=== PATIENT | female | born 1995 | race African-American/Black ===

== ENCOUNTER 2020-01-20 18:35 | Emergency (ER) | payer OTHER, SELFPAY ==
--- NOTE | 2020-01-20 19:02 | PC.NURSE ---
Pt decided to try another facility. Ambulatory out of dept.
== END 2020-01-20 19:02 | disposition left against medical advice (07) ==
LOC: ANHED 19:09
DX: Z53.21 Procedure and treatment not carried out due to patient leaving prior to being seen by health care provider (principal)
CPT/HCPCS: 82962; 99199

== ENCOUNTER 2020-03-02 10:07 | Emergency (ER) | payer OTHER, SELFPAY ==
--- NOTE | ~2020-03-02 | US_ITS ---
EXAMINATION: US pelvic complete DATE: 03/02/2020 13:25 INDICATION: Right lower quadrant pain TECHNIQUE: Multiple transabdominal and endovaginal sonographic images of the pelvis were obtained. COMPARISON: None. FINDINGS: The uterus measures 7.8 x 3.9 x 4.6 cm. The endometrial complex measures 13 mm. The right o vary measures 3.8 x 2.3 x 3.0 cm and contains a cyst. The left ovary measures 3.5 x 1.9 x 2.4 cm. The re is normal vascular flow in the ovaries. There is no free fluid in the pelvis. IMPRESSION: 1. No sonographic correlate for the patient's symptoms. Reviewed, dictated and finalized at [facility].
--- NOTE | ~2020-03-02 | CT_ITS ---
EXAMINATION: CT abdomen pelvis w con INDICATION: Right lower quadrant pain TECHNIQUE: Computed tomographic images of the abdomen and pelvis were obtained after the administrati on of 100 cc of Omnipaque 350 intravenous contrast. The dose-length product (DLP) was 1131.25 mGy-cm. Automated exposure control and iterative reconstruction technique were employed. COMPARISON: 06/12/2017 FINDINGS: The lung bases are clear. The heart size is normal. The liver, spleen, pancreas, gallbladde r, and adrenal glands are normal. The kidneys are unremarkable. No pathologically enlarged abdominal or pelvic lymph nodes are identified. There is no free intraperitoneal gas or evidence of bowel obstr uction. The appendix is normal. A small amount of free fluid in the pelvis is likely physiologic. The re is a 3.3 cm cyst of the right ovary. The right ovary is positioned somewhat medial and posterior t o the uterine body. IMPRESSION: 1. Somewhat medial positioning of the right ovary relative to the uterine body. If ovarian torsion is a consideration, pelvic ultrasound is recommended. Reviewed, dictated and finalized at location [facility].
[2020-03-02 10:11] VITALS: BP 132/89; PULSE 75; RESP 18; TEMP 36.6; O2SAT 100
[2020-03-02 10:39] LABS: Add Urine Microscopic? NO; Appearance Urine Clear (Clear); Bilirubin Urine Negative (Negative); Blood Urine Negative (Negative); Color Urine Colorless (Yellow); Glucose Urine UA Negative (Negative); Ketones Urine Negative (Negative); Leukocyte Esterase Ur Negative LEU/UL (Negative); Nitrate Urine Negative (Negative); Protein Urine Negative (Negative); Specific Grav Ur 1.006 (1.001-1.035); Urobilinogen Urine Negative mg/dL (<2.0)
[2020-03-02] MEDS: KETOROLAC 30 MG/ML VIAL (*BKC) IV PUSH (11:17)
[2020-03-02] MEDS: SODIUM CHLORIDE 0.9% IV 1,000 ML 999 ML IV CONT (11:17)
[2020-03-02] MEDS: ONDANSETRON INJ 4 MG/2 ML VIAL IV PUSH (11:17)
[2020-03-02] MEDS: FAMOTIDINE 20 MG/2 ML VIAL IV PUSH (11:18)
[2020-03-02 11:21] LABS: Basophils Absolute Auto 0.1 K/mm3 (0.0-0.1); Basophils Percent Auto 0.7 % (0.2-1.2); Eosinophils Absolute Auto 0.2 K/mm3 (0-0.3); Eosinophils Percent Auto 3.3 % (0-4.4); Hematocrit 41.8 % (37.0-47.0); Hemoglobin 13.4 g/dL (12.0-15.0); Immature Granulocyte Absolute 0.03 K/mm3 (0.00-0.031); Immature Granulocyte Percent A 0.4 % (0-0.5); Lymphocytes Absolute Auto 1.65 K/mm3 (0.9-3.2); Lymphocytes Percent Auto 22.8 % (18.3-44.2); Mean Corpuscular HGB Conc 32.1 g/dl (32-36); Mean Corpuscular Hemoglobin 28.6 pg (26-34); Mean Corpuscular Volume 89.3 fl (80-100); Monocytes Absolute Auto 0.6 K/mm3 (0.1-0.6); Monocytes Percent Auto 8.2 % (2.6-8.5); Neutrophils Absolute Auto 4.7 K/mm3 (1.3-6.7); Neutrophils Percent Auto 64.6 % (45.5-73.1); Platelet Count Result 269 k/mm3 (150-375); Red Blood Count 4.68 M/mm3 (4.2-5.4); Red Cell Distribution Width 13.5 % (11.5-14.5); White Blood Count 7.2 K/mm3 (4.5-10.0)
[2020-03-02 11:34] LABS: Alanine Aminotransferase 13 U/L (4-35); Albumin Level 4.5 g/dL (3.5-5.1); Alkaline Phosphatase 71 U/L (38-126); Anion Gap 7 mmol/L (8-16); Aspartate Amino Transferase 22 U/L (14-36); Bilirubin,Total 0.2 mg/dL (0.2-1.3); Blood Urea Nitrogen 10 mg/dL (7-17); Calcium 9.8 mg/dL (8.4-10.2); Carbon Dioxide 28 mmol/L (22-30); Chloride 100 mmol/L (98-107); Estimated CRCL calculation 99 ml/min; Estimated Glomerular Filt Rate > 60; Glucose 89 mg/dL (65-105); Sodium 135 mmol/L (137-145)
--- NOTE | 2020-03-02 12:23 | ED.GENADULT ---
HPI - General Adult General Chief complaint: MANUFACTURERS REPRESENTATIVE <STUART Patricia Last Filed: 03/02/20 14:19> Stated complaint: pelvic pain <STUART Patricia Last Filed: 03/02/20 14:19> Time Seen by Provider: 03/02/20 10:20 <STUART Patricia Last Filed: 03/02/20 14:19> Source: patient and family <STUART Patricia Last Filed: 03/02/20 14:19> Mode of arrival: ambulatory <STUART Patricia Last Filed: 03/02/20 14:19> Limitations: no limitations <STUART Patricia Last Filed: 03/02/20 14:19> History of Present Illness HPI narrative: Patient is a 24-year-old female who presents to emergency department with family for evaluation of sharp right lower quadrant pain that began this morning and intensified patient has been having lower pelvic pain for the last month or more has seen her specialist for this had pelvic exam which was unremarkable for STDs patient. Patient was started on hormone replacement to attempt to get her to have a period which she has not had for a month. Patient noted sharp stabbing pain this morning that intensified with associated nausea. Denies urinary symptoms vaginal bleeding discharge or change in bowel habits <STUART Patricia Last Filed: 03/02/20 14:19> Related Data Home medications: Home Medications Medication Instructions Recorded Confirmed duloxetine mg PO DAILY 03/02/20 hydroxychloroquine BID 03/02/20 medroxyprogesterone See Rx Instructions .ROUTE .COMPLEX 03/02/20 03/02/20 <Davon Cage PA-C - Last Filed: 03/02/20 14:19> Allergies/adverse reactions: Allergies Allergy/AdvReac Type Severity Reaction Status Date / Time oxycodone AdvReac Hallucinati Verified 03/02/20 10:49 ng <STUART Patricia Last Filed: 03/02/20 14:19> Review of Systems Review of Systems: All systems reviewed & are unremarkable except as noted in HPI and below <STUART Patricia Last Filed: 03/02/20 14:19> PMF Past Medical History Medical History: Medical History Obesity <Davon Cage PA-C - Last Filed: 03/02/20 14:19> Surgical History Surgical History: Surgical History H/O left knee surgery <Davon Cage PA-C - Last Filed: 03/02/20 14:19> Family History Family History: Family History Grandparent Hypertension Other Family history of lupus erythematosus <Davon Cage PA-C - Last Filed: 03/02/20 14:19> Social History Social History: Social History Smoking status: Never smoker Second hand tobacco smoke exposure: No Alcohol intake: never Gender identity (if verbalized by the patient): Female <Davon Cage PA-C - Last Filed: 03/02/20 14:19> Exam Narrative: Exam Narrative: GENERAL: Well-appearing, well-nourished, and in no acute distress. HEAD: Normocephalic, atraumatic. EYES: PERRLA and EOMI. ENT: Nares clear, no rhinorrhea or epistaxis. Mucous membranes moist. NECK: Supple. No adenopathy or masses. CHEST: Clear to auscultation. No respiratory distress. No wheezes rales or rhonchi HEART: Regular rate and rhythm. No murmur heard. Normal peripheral pulses. ABDOMEN: Soft, tenderness in the right adnexa no rebound or guarding, nondistended FEMALE GENITOURINARY: Patient with small amount of white discharge in the vaginal vault otherwise unremarkable exam EXTREMITIES: Normal range of motion. No edema. SKIN: Warm, dry, no rash. NEURO: No focal deficits. Alert and oriented x3. PSYCH: Normal mood and affect. <Davon Cage PA-C - Last Filed: 03/02/20 14:19> Course Course Emergency Course: Patient was given medications with improvement in the emergency department made aware of case findings treatme
[2020-03-02 12:43] VITALS: BP 138/74; PULSE 64; RESP 16; O2SAT 100
[2020-03-02 14:35] VITALS: BP 131/74; PULSE 74; RESP 16; O2SAT 99
== END 2020-03-02 14:37 | disposition home or self-care (01) ==
PROVIDERS: Emergency Medicine Emergency Medical Services; Emergency Provider Emergency Medicine
DX: R10.2 Pelvic and perineal pain (principal); N83.209 Unspecified ovarian cyst, unspecified side
CPT/HCPCS: 36415; 74177; 76856; 80053; 81003; 81025; 85025; 87070; 87077; 87491; 87591; 87808; 96361; 96374; 96375; 99284; J1885; J2405; J7030; Q9967

== ENCOUNTER 2020-12-07 17:26 | Emergency (ER) | payer OTHER, SELFPAY ==
--- NOTE | ~2020-12-07 | US_ITS ---
US pelvic complete w TV DATE: 12/07/2020 18:56 INDICATION: Right lower quadrant abdominal pain TECHNIQUE: Real-time imaging via transabdominal and transvaginal approaches COMPARISON: 03/02/2020 CT abdomen pelvis and complete pelvic ultrasound examination FINDINGS: The uterus and adnexal areas are not well demonstrated on the transabdominal view due to mi nimal fluid in the urinary bladder. The uterus measures 9.9 cm height, 5.2 cm transverse and 4.7 cm AP dimension. The central and medial apical complex measures up to 18 mm. There is mild free fluid in the pelvic cul-de-sac. The right ovary measures 6.4 x 4.6 x 3.2 cm, with vascular flow. The left ovary measures 3.3 x 2.1 x 2.7 cm, with vascular flow. IMPRESSION: Vascular flow to both ovaries Prominent central endometrial echo complex, measuring up to 18 mm AP dimension Mild free fluid collection in the cul-de-sac Reviewed, dictated and finalized at [facility]. Reviewed, dictated and finalized at [facility].
[2020-12-07 17:37] VITALS: BP 135/95; PULSE 94; RESP 18; TEMP 36.5; O2SAT 100
[2020-12-07 18:06] LABS: Add Urine Microscopic? YES; Appearance Urine Cloudy (Clear); Bacteria Urine Trace /hpf; Bilirubin Urine Negative (Negative); Blood Urine Negative (Negative); Color Urine Yellow (Yellow); Glucose Urine UA Negative (Negative); Ketones Urine Negative (Negative); Leukocyte Esterase Ur Trace LEU/UL (Negative); Mucus Urine Rare /lpf; Nitrate Urine Negative (Negative); Protein Urine 1+ mg/dL (Negative); RBC Urine 0-2 /hpf (0-2); Specific Grav Ur 1.019 (1.001-1.035); Squamous Epithelial Cell Urine Many /hpf (Few); Urobilinogen Urine Negative mg/dL (<2.0)
[2020-12-07 19:14] VITALS: BP 144/73; PULSE 89; RESP 12; O2SAT 98
--- NOTE | 2020-12-07 20:36 | ED.GENADULT ---
HPI - General Adult General Chief complaint: Urogenital-Female Stated complaint: VAGINAL IRRITATION/PAIN Time Seen by Provider: 12/07/20 18:13 Source: patient, family and RN notes reviewed Mode of arrival: ambulatory Limitations: no limitations History of Present Illness HPI narrative: Patient is a 25-year-old female who presents with pelvic pain after having intercourse last night patient notes that she began to have the pain during the intercourse and has had it since localized to the right adnexa does note history of cysts denies any vaginal discharge or bleeding notes that she had felt fine prior to intercourse notes that she has had issues with sensitivities to condoms and lubrications in the past patient denies any fever chills nausea vomiting on arrival does not appear distressed and is accompanied by her mother Related Data Home Medications Medication Instructions Recorded Confirmed duloxetine mg PO DAILY 03/02/20 hydroxychloroquine BID 03/02/20 medroxyprogesterone See Rx Instructions .ROUTE .COMPLEX 03/02/20 03/02/20 Allergies Allergy/AdvReac Type Severity Reaction Status Date / Time oxycodone AdvReac Hallucinati Verified 03/02/20 10:49 ng Review of Systems Review of Systems: All systems reviewed & are unremarkable except as noted in HPI and below PMFSH Past Medical History Medical History (Updated 12/07/20 @ 20:39 by Davon Cage PA-C) Obesity Ovarian cyst Surgical History Surgical History H/O left knee surgery Family History Family History Grandparent Hypertension Other Family history of lupus erythematosus Social History Social History Smoking status: Never smoker Second hand tobacco smoke exposure: No Alcohol intake: never Gender identity (if verbalized by the patient): Female Exam Narrative: Exam Narrative: GENERAL: Well-appearing, obese, and in no acute distress. HEAD: Normocephalic, atraumatic. EYES: PERRLA and EOMI. ENT: Nares clear, no rhinorrhea or epistaxis. Mucous membranes moist. CHEST: Clear to auscultation. No respiratory distress. No wheezes rales or rhonchi HEART: Regular rate and rhythm. No murmur heard. Normal peripheral pulses. ABDOMEN: Soft, mild right adnexal tenderness no rebound or guarding remainder of abdomen nontender, nondistended, normal active bowel sounds. FEMALE GENITOURINARY: Normal exam no blood no discharge no other abnormalities EXTREMITIES: Normal range of motion. No edema. SKIN: Warm, dry, no rash. NEURO: No focal deficits. Alert and oriented x3. PSYCH: Normal mood and affect. Course Course Emergency Course: Patient evaluated the emergency department pelvic cultures were obtained no abnormality on exam patient aware of her ultrasound findings will follow with her office runner on Monday as planned for reevaluation and culture results agrees with this ABCs and vital signs intact and stable pain is minimal at this time Vital Signs Vital signs: Vital Signs Temperature 97.7 F 12/07/20 17:37 Pulse Rate 94 12/07/20 17:37 Respiratory Rate 18 12/07/20 17:37 Blood Pressure 135/95 H 12/07/20 17:37 Pulse Oximetry 100 12/07/20 17:37 Temperature 97.7 F 12/07/20 17:37 Pulse Rate 89 12/07/20 19:14 Respiratory Rate 12 12/07/20 19:14 Blood Pressure 144/73 H 12/07/20 19:14 Pulse Oximetry 98 12/07/20 19:14 Medical Decision Making MDM Narrative Medical decision making narrative: Patient presented with postcoital pelvic pain no distress on arrival does not appear uncomfortable will be discharged home with outpatient follow-up agreeing with this plan Vital Signs Vital Signs: Vital Signs Temperature 97.7 F 12/07/20 17:37 Pulse Rate 94 12/07/20 17:37 Respiratory Rate 18 12/07/20 17:37 Blood Pressure 135/95 H 12/07/20 17:37 Pu
[2020-12-07 20:45] VITALS: BP 137/85; PULSE 68; RESP 18; TEMP 36.4; O2SAT 98
== END 2020-12-07 22:02 | disposition home or self-care (01) ==
PROVIDERS: Emergency Medicine; Emergency Medicine Emergency Medical Services; Emergency Provider Emergency Medicine; PCP Internal Medicine
DX: R10.2 Pelvic and perineal pain (principal); E66.9 Obesity, unspecified; Z68.37 Body mass index [BMI] 37.0-37.9, adult
CPT/HCPCS: 76830; 76856; 81001; 81025; 87070; 87491; 87591; 87808; 99284

== ENCOUNTER 2021-01-04 10:10 | Emergency (ER) | payer OTHER, SELFPAY ==
[2021-01-04 10:19] VITALS: BP 128/83; PULSE 82; RESP 16; TEMP 36.8; O2SAT 99
--- NOTE | 2021-01-04 10:23 | ED.URI ---
HPI - URI/Sore Throat General Chief Complaint: Upper Respiratory Infection Stated Complaint: Sore Throat Time Seen by Provider: 01/04/21 10:23 Source: patient and RN notes reviewed History of Present Illness HPI Narrative: Patient is a 25-year-old female who presents the urgent care with complaints of a sore throat since Monday. Patient also reports of ears ringing. States that she has been taking Tylenol/Ibuprofen for her symptoms. Denied cough, headache, nausea, vomiting or other upper respiratory symptoms. No other acute complaints. No acute distress noted. Patient aware of the plan of care. Some parts of this dictation were generated by voice recognition software and may contain typographical and/or grammatical inaccuracies. Related Data Home Medications Medication Instructions Recorded Confirmed duloxetine mg PO DAILY 03/02/20 Allergies Allergy/AdvReac Type Severity Reaction Status Date / Time oxycodone AdvReac Hallucinati Verified 03/02/20 10:49 ng Review of Systems Review of Systems: Narrative: CONSTITUTIONAL: Denies fever, chills, or sweats. EYES: Denies visual changes, redness, or discharge. ENT: Denies rhinorrhea, congestion. Reports of bilateral ear ringing and sore throat CARDIOVASCULAR: Denies chest pain, palpitations, or edema. RESPIRATORY: Denies cough or dyspnea. GASTROINTESTINAL: Denies abdominal pain, nausea, vomiting, or diarrhea. GENITOURINARY: Denies dysuria or hematuria. SKIN: Denies rash or itching. MUSCULOSKELETAL: Denies back pain, joint pain, or myalgia. NEUROLOGIC: Denies headache, numbness, or weakness. All other systems reviewed are negative, except as documented in HPI. [facility] Past Medical History Medical History (Updated 01/04/21 @ 10:34 by MAGNUS Isidro) Obesity Ovarian cyst Surgical History Surgical History H/O left knee surgery Family History Family History Grandparent Hypertension Other Family history of lupus erythematosus Social History Social History Smoking status: Never smoker Second hand tobacco smoke exposure: No Alcohol intake: never Gender identity (if verbalized by the patient): Female Comments At the time of my signature, I reviewed and agree with the nursing past medical, surgical, social, and family history. There is no relevant family history pertinent to the patient complaint. Exam Narrative: Exam Narrative: GENERAL: This is a well-nourished, well-developed patient, in no apparent distress. HEAD: normocephalic, atraumatic. EYES: PERRL. Sclera clear/white. Vision is grossly intact. EARS: External ears normal, auditory canals clear and without drainage, TMs normal without perforation. Hearing grossly intact. NOSE: External nose normal with no obvious nasal discharge, nares without redness, no rhinorrhea. THROAT: Mucous membranes moist, posterior pharynx clear. NECK: Neck supple, non-tender without lymphadenopathy, masses or thyromegaly. CARDIOVASCULAR: Regular rate and rhythm without murmurs, gallops, or rubs. RESPIRATORY: Clear to auscultation. Breath sounds equal bilaterally. No wheezes, rales, or rhonchi. GASTROINTESTINAL: Abdomen soft, non-tender, nondistended. Bowel sounds are active. No hepato-splenomegaly, or palpable masses. No guarding. SKIN: warm, intact with no suspicious lesions or rash, good texture and turgor. NEURO: awake, alert, and oriented to person, place and time. There were no obvious focal neurologic abnormalities. EXTREMITIES: No clubbing, cyanosis, or edema. No joint tenderness, effusion, or edema noted. No calf tenderness. Negative Homans sign bilaterally. BACK: Nontender without deformity or crepitance. No flank tenderness. Course Vital Signs Vital signs: Vital Signs Temperature 98.2 F 01/04/21 10:19 Pulse Rate 82 01/04/21 1
== END 2021-01-04 10:44 | disposition home or self-care (01) ==
PROVIDERS: Emergency Provider Nurse Practitioner Family; PCP Internal Medicine
DX: J02.9 Acute pharyngitis, unspecified (principal); E66.9 Obesity, unspecified; Z68.38 Body mass index [BMI] 38.0-38.9, adult
CPT/HCPCS: 87081; 87880; 99213; G0463

== ENCOUNTER 2022-05-09 17:11 | Emergency (ER) | payer OTHER, SELFPAY ==
[2022-05-09 17:21] VITALS: BP 122/58; PULSE 111; RESP 16; TEMP 37.7; O2SAT 99
--- NOTE | 2022-05-09 17:40 | ED.URI ---
HPI - URI/Sore Throat General Chief Complaint: Upper Respiratory Infection Stated Complaint: Fever, Sinus Time Seen by Provider: 05/09/22 17:40 Source: patient and RN notes reviewed Mode of arrival: ambulatory Limitations: no limitations History of Present Illness HPI Narrative: 26-year-old female with history of lupus presents with concern for 2 day history of fever, body aches, chills, sinus congestion, ear pressure, sore throat, cough. She reports she has taken Mucinex. She denies any known sick contacts. MD elicited complaint: cough and sore throat Related Data Home Medications Medication Instructions Recorded Confirmed duloxetine 30 mg capsule,delayed 30 mg PO DAILY 03/02/20 05/09/22 release dextroamphetamine-amphetamine ER 20 mg PO DAILY 05/09/22 05/09/22 20 mg 24hr capsule,extend release dextroamphetamine-amphetamine ER 5 5 mg PO DAILY 05/09/22 05/09/22 mg 24hr capsule,extend release hydroxychloroquine 200 mg tablet 200 mg PO BID 05/09/22 05/09/22 Allergies Allergy/AdvReac Type Severity Reaction Status Date / Time oxycodone AdvReac Intermediate Hallucinati Verified 05/09/22 17:17 ng Review of Systems Review of Systems: CONSTITUTIONAL: Reports malaise, chills, sweats, or fever. EYES: Denies visual changes, redness, or discharge. ENT: Reports rhinorrhea, congestion, otalgia and sore throat. CARDIOVASCULAR: Denies chest pain, palpitations, or edema. RESPIRATORY: Reports cough. Denies dyspnea. GASTROINTESTINAL: Denies abdominal pain, nausea, vomiting, diarrhea SKIN: Denies rash or itching. MUSCULOSKELETAL: Reports myalgia. NEUROLOGIC: Reports headache. All systems reviewed & are unremarkable except as noted in HPI and below PMFSH Past Medical History Medical History (Updated 05/09/22 @ 18:07 by Lenka Harris NP) Obesity Ovarian cyst Surgical History Surgical History H/O left knee surgery Family History Family History Grandparent Hypertension Other Family history of lupus erythematosus Social History Social History Smoking status: Never smoker Second hand tobacco smoke exposure: No Alcohol intake: never Gender identity (if verbalized by the patient): Female Comments At time of signature, agree with nursing past medical, surgical, social and family history. There is no relevant family history pertinent to the presenting complaint Exam Narrative: GENERAL: Nontoxic-appearing and in no acute distress. HEAD: Normocephalic EYES: PERRLA, conjunctivae clear ENT: Nares clear, turbinates edematous and erythematous, clear discharge. Mucous membranes moist. TM pearly cazares with dull light reflex bilaterally; no tragal tenderness. Oropharynx not erythematous without lesions. Tonsils not enlarged and without exudate, no drooling, no hoarseness, no trismus, uvula midline. NECK: Supple. No lymphadenopathy CHEST: Clear to auscultation, breath sounds equal. No wheezing, rhonchi, rales, or stridor. No respiratory distress, speaks in full sentences. HEART: Regular rate and rhythm. No murmur heard. SKIN: Warm, dry, no rash. NEURO: Alert and oriented x3. PSYCH: Normal mood and affect Course Course Emergency Course: Patient is aware of diagnosis, understands and agrees to treatment plan. Anticipatory guidance given. Patient agrees to follow-up as directed and is aware of reasons to seek care at the emergency department. Portions of this record may have been created with voice recognition software Level of Care: Express Care Visit Vital Signs Vital signs: Vital Signs Temperature 99.8 F H 05/09/22 17:21 Pulse Rate 111 H 05/09/22 17:21 Respiratory Rate 16 05/09/22 17:21 Blood Pressure 122/58 L 05/09/22 17:21 Pulse Oximetry 99 05/09/22 17:21 Oxygen Delivery Room Air 05/09/22 17:21 Te
== END 2022-05-09 18:20 | disposition home or self-care (01) ==
PROVIDERS: Emergency Provider Nurse Practitioner; PCP Internal Medicine
DX: J11.1 Influenza due to unidentified influenza virus with other respiratory manifestations (principal); Z20.822 Contact with and (suspected) exposure to COVID-19; E66.9 Obesity, unspecified; Z68.31 Body mass index [BMI] 31.0-31.9, adult; M32.9 Systemic lupus erythematosus, unspecified
CPT/HCPCS: 87081; 87426; 87804; 87880; 99213; C9803; G0463